=== PATIENT | female | born 1990 | race Caucasian/White ===

== ENCOUNTER 2023-09-21 03:02 | Emergency (ER) | payer OTHER ==
[~2023-09-21] VITALS: Ht 162.6 cm; Wt 117.9 kg
[2023-09-21 03:06] VITALS: BP_SYST 131; PULSE 80; RESP 16; TEMP 98.5; O2SAT 98
[2023-09-21] MEDS ORDERED: SULF1TAB48 PO (03:13)
== END 2023-09-21 03:19 | disposition home or self-care (01) ==
LOC: SED 03:02
DX: L03.031 Cellulitis of right toe (principal); I10 Essential (primary) hypertension; E11.9 Type 2 diabetes mellitus without complications
CPT/HCPCS: 99283